=== PATIENT | male | born 1990 | race Caucasian/White ===

== ENCOUNTER 2021-05-16 05:18 | Day surgery (SDC) | payer OTHER ==
[2021-05-13 15:04] VITALS: BMI 33.9
[2021-05-16 09:54] VITALS: TEMP 98
[2021-05-16] MEDS ORDERED: LIDOCAINE HCL 1%, 10 MG/ML (20ML VIAL) ONE (12:11)
[2021-05-16] MEDS ORDERED: BUPIVACAINE HCL/PF 0.5% (5MG/ML) 10 ML VIAL ONE (12:11)
[2021-05-16] MEDS ORDERED: PROPOFOL 20 ML ONE (12:39)
[2021-05-16] MEDS ORDERED: MIDAZOLAM HCL 2 MG/2 ML SINGLE DOSE VIAL ONE (12:39)
[2021-05-16] MEDS ORDERED: ceFAZolin 2 GRAM PREMIX BAG IVPB ONE (12:50)
[2021-05-16] MEDS ORDERED: BUPIVACAINE HCL/PF 0.5% (5MG/ML) 10 ML VIAL IJ ONE ×2 (13:25)
[2021-05-16] MEDS ORDERED: PROMETHAZINE HCL 25 MG/1 ML VIAL IVPB PRN (14:02)
[2021-05-16] MEDS ORDERED: oxyCODONE HCL 5 MG TABLET PO PRN (14:02)
[2021-05-16] MEDS ORDERED: ONDANSETRON 4 MG/2 ML VIAL IVPUSH PRN (14:02)
[2021-05-16 15:52] VITALS: BP 142/82; PULSE 79
== END 2021-05-16 15:58 | disposition home or self-care (01) ==
LOC: JASU-SURG 05:18
PROVIDERS: ATTEND Urology
PROC: 0VTQ0ZZ Resection of Bilateral Vas Deferens, Open Approach (ICD-10-PCS; principal; 2021-05-16 10:30)
DX: Z30.2 Encounter for sterilization (principal)
CPT/HCPCS: 88302-TC; 94760